=== PATIENT | male | born 1995 | race Two or more races ===

== ENCOUNTER 2019-04-07 14:18 | Emergency (ER) | payer SELFPAY ==
[~2019-04-07] VITALS: Ht 170.2 cm; Wt 59.0 kg
[2019-04-07 14:40] VITALS: BP 154/49
== END 2019-04-07 16:56 | disposition left against medical advice (07) ==
LOC: ER 14:18
DX: R10.9 Unspecified abdominal pain (principal); Z53.21 Procedure and treatment not carried out due to patient leaving prior to being seen by health care provider